=== PATIENT | male | born 1960 ===

== ENCOUNTER 2024-10-06 07:44 | Outpatient (CLI) | payer OTHER, SELFPAY ==
--- NOTE | 2024-10-12 10:54 | WPDHOMESLEEP ---
Sleep Study - Home Unattended Date of Study: 10/06/24 Ordering Provider: Rachid Ross, [employer] MANAGER Interpreting Provider: Lida Aguirre, DO Home Sleep Study Type: Watch PAT Height: 1.88 m Weight: 105.233 kg Body Mass Index: 29.7 Neck Circumference (inches): 16.5 [place]: 15 Reason for Sleep Study Daytime hypersomnia Sleep History The patient is a 64-year-old male that had a sleep study ordered by his ENT for evaluation of sleep apnea. The patient admits to snoring loudly and difficulty maintaining sleep. He denies choking or gasping at night. He denies interruptions in breathing while asleep. He denies having trouble breathing on his back. He denies morning headaches. He denies having a dry or sore mouth/ throat in the morning. He denies nocturnal heartburn. He urinates 3 times throughout the night. He denies having difficulty falling asleep but does have difficulty staying asleep. He does not have difficulty returning to sleep if he wakes up throughout the night. He denies any hypnotic or sedative use. He denies feeling anxious about sleep. He does feel tired or sleepy during the day. He denies feeling tired in the morning. He denies having the urge to fall asleep during the day. He denies feeling drowsy while driving. He denies sleep paralysis, cataplexy and hypnagogic/ hypnopompic hallucinations. He denies clenching or grinding his teeth. He denies kicking or jerking his legs excessively. He does have restless feeling in his legs that does cause an urge to move his legs. The restless feeling is worse with rest but it does not improve with activity. The restless feeling is predominantly present in the evening or at night time. It does cause a disturbance in his sleep. He goes to bed 11:45 p.m. on work days and at 2:00 a.m. on his days off. He gets 6 hours of sleep on his work days and 5 hours of sleep on his days off. His sleep is much more restorative on his days off. He denies taking any planned naps. He denies dream enactment behavior. He denies sleep walking. He consumes more than 5 caffeinated beverages per day. He denies tobacco and alcohol use. He exercises 3-4 nights per week. Sleep Procedure The sleep study was completed using [employer] a technically adequate device with seven channels: peripheral arterial tone, actigraphy, body position, snore, respiratory movement, pulse oximetry, sleep staging, and heart rate. Prior to using the device, the patient received verbal and written instructions for its application and was provided with the help desk phone number for additional telephonic instruction with 24-hour availability of qualified personnel to answer questions. The study was scored using CMS guidelines. Sleep Architecture The total recording time is 3 hrs, 33 min. The total sleep time is 2 hrs, 41 min. Sleep latency is 17 minutes. REM latency is 79 minutes. The patient had 5 episodes of waking. Sleep architecture shows 2.8% deep sleep, 87.9% light sleep, and (as % Total Sleep Time) showed NREM (Light 87.9%; Deep 2.8%), and a 9.3% stage REM. The patient spent 100.0% of total sleep time in the supine position. Sleep efficiency was 75.59. Respiratory Analysis The overall AHI (pAHI 4%:) is 31.4. The central AHI is 10.5. The AHI was N/A in NREM and N/A in REM sleep. The AHI was 31.4 in Supine and N/A in Non-supine sleep. Percent of Kurt Cortes respirations is 11.2. Oximetry Data The oxygen desaturation index (DEVI 4%:) is 30.6. The mean saturation is 95%, and the lowest saturation is 82%. Time spent with saturation < 88% is 1.8 minutes. Snoring Profile Snoring average intensity is 41 dB. The patient snored above 45 decibels for 6.8 minutes, 4.2% of sleep time. Cardiac Profile The average pulse rate is 73 beats per minutes. The lowest pulse rate is 60 bpm. The highest pulse rate reported is 97 bpm. Atrial fibrillation was not detected. Premature beats occur <0.1 per minute. Assessment and Plan Assessment and Plan (1) ROSE (obstructive sleep apnea): Code(s): G47.33 - Obstructive sleep apnea (adult) (pediatric) Status: Acute Assessment and Plan: The patient had an overall AHI of 31.4 with desaturation down to 82%. The patient had a central apnea index of 10.5, which is elevated (normal < 5). Probable Kurt-Cortes respirations were present during 11.2% of total sleep time. This is consistent with severe sleep apnea. Due to the elevated central apnea index and presence of Kurt-Cortes respirations, the patient is not a candidate for AutoPAP. AutoPAP can increase the frequency and severity of central apneas. I recommend that the patient have a CPAP titration study with the use of a hypnotic to ensure we obtain enough sleep data and find an optimal pressure. (2) Kurt-Cortes respiration: Code(s): R06.3 - Periodic breathing Status: Acute Assessment and Plan: Probable Kurt-Cortes respirations were present during 11.2% of total sleep time. The patient will need to get an echocardiogram done to evaluate for cardiogenic causes of an elevated central apnea index and Kurt Cortes respirations. Data The data obtained during this sleep study is adequate for interpretation. Certification This sleep study has been reviewed by a board certified sleep medicine physician.
[2024-10-13 14:28] VITALS: BMI 29.7
== END 2024-10-07 14:11 | disposition home or self-care (01) ==
LOC: ANHCSM 07:46
PROVIDERS: PCP Internal Medicine Cardiovascular Disease; Visit Provider Nurse Practitioner Family
DX: G47.33 Obstructive sleep apnea (adult) (pediatric) (principal)
CPT/HCPCS: 95800